=== PATIENT | male | born 1985 | race Two or more races ===

== ENCOUNTER → 2016-10-16 | Outpatient (CLI) | payer OTHER ==
--- NOTE | 2016-10-16 13:23 | DX ---
Right knee, 3 views. History: Knee pain. History of patellar dislocation. Injury 2 weeks ago. Findings: Moderate suprapatellar joint effusion. No evidence for acute fracture or dislocation. No si gnificant joint narrowing or periarticular erosion. Impression: Moderate suprapatellar joint effusion. No other significant osseous or soft tissue abnorm ality.
== END ==
LOC: BRMIMAGING 12:02
PROVIDERS: ATTEND Internal Medicine
DX: M25.461 Effusion, right knee (principal)
CPT/HCPCS: 73562-PO